=== PATIENT | male | born 1950 | race Hispanic/Latino ===

== ENCOUNTER 2017-10-03 19:38 | Emergency (ER) | payer MEDICARE ==
[2017-10-03 20:29] LABS: BASOPHILS % (AUTO) 0.8 % (0.0-5.0); EOSINOPHILS % (AUTO) 2.1 % (0.0-8.0); HEMATOCRIT 38.9 % (42-54); LYMPHOCYTES % (AUTO) 24.2 % (21.0-51.0); MEAN CORPUSCULAR HEMOGLOBIN 31.6 pg (27.0-33.0); MEAN CORPUSCULAR HGB CONC 34.4 g/dL (32.0-36.0); MEAN CORPUSCULAR VOLUME 91.9 fL (79-99); MONOCYTES % (AUTO) 6.1 % (3.0-13.0); NEUTROPHILS % (AUTO) 66.8 % (40.0-77.0); PLATELET COUNT (AUTO) 221 K/uL (130-400); RED BLOOD CELL COUNT(AUTO) 4.24 MIL/uL (4.50-6.20); RED CELL DISTRIBUTION WIDTH 14.1 % (11.0-15.5)
[2017-10-03 20:39] LABS: BILIRUBIN,URINE Negative (NEGATIVE); COLOR,URINE Yellow (YELLOW); GLUCOSE, URINE (UA) Negative (NEGATIVE); KETONES,URINE Negative (NEGATIVE); LEUKOCYTE ESTERASE ,URINE Negative (NEGATIVE); NITRATE,URINE Negative (NEGATIVE); OCCULT BLOOD,URINE Negative (NEGATIVE); PROTEIN,URINE Negative (NEGATIVE); UROBILINOGEN,URINE 0.2 mg/dL (0.2-1.0)
[2017-10-03 20:42] LABS: APPEARANCE,URINE CLEAR (CLEAR)
[2017-10-03 20:45] LABS: INR 1.03 (0.85-1.15); PARTIAL THROMBOPLASTIN TIME 27.5 SEC (26.3-35.5); PROTHROMBIN TIME 10.8 SEC (9.6-11.6)
[2017-10-03 20:46] LABS: CREATININE 1.2 mg/dL (0.5-1.5); POTASSIUM 3.7 mmol/L (3.5-5.1)
[2017-10-03 20:47] LABS: AMPHET/METH SCREEN,URINE NEGATIVE (NEGATIVE); BARBITURATE SCREEN, URINE NEGATIVE (NEGATIVE); BENZODIAZEPINES SCREEN,URINE NEGATIVE (NEGATIVE); CANNABINOID SCREEN,URINE NEGATIVE (NEGATIVE); COCAINE SCREEN,URINE NEGATIVE (NEGATIVE); OPIATE SCREEN,URINE NEGATIVE (NEGATIVE); PHENCYCLIDINE SCREEN,URINE NEGATIVE (NEGATIVE)
[2017-10-03 21:00] LABS: BILIRUBIN,TOTAL 0.6 mg/dL (0.2-1.0); CREATINE KINASE MB 8.7 ng/mL (0.5-3.6); TOTAL PROTEIN, SERUM 7.3 g/dL (6.0-8.3)
[2017-10-03] MEDS ORDERED: ONDANSETRON HCL 4 MG/2 ML VIAL ONE (21:11)
[2017-10-03] MEDS ORDERED: KETOROLAC TROMETHAMINE 15MG/ML ONE (21:11)
[2017-10-03] MEDS ORDERED: METOCLOPRAMIDE 10 MG TABLET ONE (21:21)
== END 2017-10-03 22:47 | disposition home or self-care (01) ==
LOC: EDH 19:38
DX: G44.209 Tension-type headache, unspecified, not intractable (principal)
CPT/HCPCS: 36415; 70450; 71045; 80053; 80305; 81003; 82550; 82553; 84484; 85025; 85610; 85730; 93005; 96374; 96375; 99285; J1885; J2405

== ENCOUNTER 2018-12-22 09:16 | Observation (INO) | payer MEDICARE ==
[2018-12-22] VITALS (17 sets, daily range): BP systolic 113–194; BP diastolic 64–86
[~2018-12-22] VITALS: Ht 167.6 cm; Wt 74.4 kg
[2018-12-22] MEDS ORDERED: SODIUM CHLORIDE 0.9% 1000ML 1,000 ML IV ONE (11:24)
[2018-12-22] MEDS ORDERED: DONE10TA8 PO (11:34)
[2018-12-22] MEDS ORDERED: SENN-183 PO (11:34)
[2018-12-22] MEDS ORDERED: MEMA5TAB PO (11:34)
[2018-12-22] MEDS ORDERED: ACET-66 PO (11:34)
[2018-12-22] MEDS ORDERED: LACT10SO9 PO (11:34)
[2018-12-22] MEDS ORDERED: FAMO-136 PO (11:34)
[2018-12-22] MEDS ORDERED: DEXT15CA10 PO (11:34)
[2018-12-22] MEDS ORDERED: OLAN10TA3 PO (11:34)
[2018-12-22] MEDS ORDERED: BRIM5DRO OP (11:34)
[2018-12-22] MEDS ORDERED: TRAZ-187 PO (11:34)
[2018-12-22] MEDS ORDERED: LORA2VIA33 IJ (11:34)
[2018-12-22] MEDS ORDERED: MIDAZOLAM HCL 1 MG/ML 2ML VIAL ONE (12:43)
[2018-12-22] MEDS ORDERED: FENTANYL CITRATE PF 50 MCG/1 ML 2ML VIAL ONE (12:45)
[2018-12-22 12:52] LABS: BASOPHILS % (AUTO) 0.9 % (0.0-5.0); HEMATOCRIT 35.5 % (42-54); LYMPHOCYTES % (AUTO) 31.2 % (21.0-51.0); MEAN CORPUSCULAR HEMOGLOBIN 30.9 pg (27.0-33.0); MEAN CORPUSCULAR HGB CONC 33.1 g/dL (32.0-36.0); MEAN CORPUSCULAR VOLUME 93.3 fL (79-99); MONOCYTES % (AUTO) 7.7 % (3.0-13.0); NEUTROPHILS % (AUTO) 59.2 % (40.0-77.0); PLATELET COUNT (AUTO) 151 K/uL (130-400); RED CELL DISTRIBUTION WIDTH 14.1 % (11.0-15.5); WHITE BLOOD COUNT (AUTO) 7.2 K/uL (4.8-10.8)
[2018-12-22] MEDS ORDERED: LEVOFLOXACIN 750 MG/D5W 150 ML 150 ML IV SCH (13:00)
[2018-12-22 13:02] LABS: CREATININE 1.4 mg/dL (0.5-1.5); POTASSIUM 4.2 mmol/L (3.5-5.1)
[2018-12-22 13:06] LABS: ALBUMIN 3.6 g/dL (3.5-5.0); BILIRUBIN,TOTAL 0.9 mg/dL (0.2-1.0); TOTAL PROTEIN, SERUM 7.5 g/dL (6.0-8.3)
[2018-12-22] MEDS ORDERED: METHYLPREDNISOLONE SOD SUCC 40MG/ML 1ML ONE (13:08)
[2018-12-22] MEDS ORDERED: METOCLOPRAMIDE 10 MG/2 ML VIAL ONE (13:08)
--- NOTE | 2018-12-22 17:03 | NUR ---
NURSING NOTE Patient received in room after procedure with orders to be NPO and admit under Dr. Clarke. He refused NPO status and signed refusal. He wanted to leave and Dr. Larson was notified. She stated she wanted patient to stay overnight, then reevaluate in AM and feed if appropriate. Patient refused this plan again. Dr. Clarke came to see patient. He decided to sign Against Medical Advice and leave. Both Drs. Clarke and Marsha aware. Dr. Larson was notified through Sofi at her office. Patient at time of discharge was alert and oriented X 3. Verbalized and demonstrated understanding of the risks of aspiration that were explained to him by primary nurse. Left accompanied by Supervisor [employer] E[employer] at [facility] and by IMPORT EXPORT AGENT at [facility], who were accompanying him as well when he arrived to floor.
[2018-12-23] MEDS ORDERED: PANTOPRAZOLE 40 MG/VIAL IVP SCH (09:00)
[2018-12-24] MEDS ORDERED: LEVOFLOXACIN 750 MG TABLET PO SCH (09:00)
== END 2018-12-22 17:10 | disposition left against medical advice (07) ==
LOC: DAH 09:16 → DAHIP 09:17 → DAH 09:17 → 3BH 14:13
PROVIDERS: ADMIT Internal Medicine; ATTEND Internal Medicine
DX: K29.70 Gastritis, unspecified, without bleeding (principal); K31.89 Other diseases of stomach and duodenum; K22.8 Other specified diseases of esophagus; K44.9 Diaphragmatic hernia without obstruction or gangrene; K62.5 Hemorrhage of anus and rectum; D12.5 Benign neoplasm of sigmoid colon; D12.3 Benign neoplasm of transverse colon; D12.2 Benign neoplasm of ascending colon; K57.30 Diverticulosis of large intestine without perforation or abscess without bleeding; K59.00 Constipation, unspecified; F20.81 Schizophreniform disorder; Z79.899 Other long term (current) drug therapy; Z80.0 Family history of malignant neoplasm of digestive organs
CPT/HCPCS: 36415; 43239; 45378; 71045; 80053; 85025; 88305; 88342; 96360; 96361; G0378 ×8; J1956; J2250; J2765; J2920; J3010; J7030; G9654

== ENCOUNTER → 2019-03-01 | Outpatient (CLI) | payer MEDICARE ==
[~2019-03-01] MED LIST: ACET-66 PO; BRIM5DRO OP; DEXT15CA10 PO; DONE10TA8 PO; FAMO-136 PO; LACT10SO9 PO; LORA2VIA33 IJ; MEMA5TAB PO; OLAN10TA3 PO; SENN-183 PO; TRAZ-187 PO
== END | disposition home or self-care (01) ==
LOC: RAH 12:38
PROVIDERS: ATTEND Internal Medicine
DX: G31.89 Other specified degenerative diseases of nervous system (principal)
CPT/HCPCS: 70450

== ENCOUNTER 2019-03-09 05:49 | Day surgery (SDC) | payer MEDICARE ==
[~2019-03-09] VITALS: Ht 162.6 cm; Wt 72.6 kg
[~2019-03-09 05:49] MED LIST changes: -DEXT15CA10 PO; -DONE10TA8 PO; +DONE23TA PO; +ESZO3 PO; -FAMO-136 PO; +MEMA10TA11 PO; -MEMA5TAB PO; -OLAN10TA3 PO; +OLAN15TA2 PO; +OMEP-50 PO; +SERT100T PO; +SUCR1TAB2 PO
[2019-03-09] MEDS ORDERED: SODIUM CHLORIDE 0.9% 1000ML 1,000 ML IV ONE (06:07)
[2019-03-09 07:21] VITALS: BP 125/73
[2019-03-09] MEDS ORDERED: PROPOFOL 10 MG/ML 20ML VIAL IV ONE (07:56)
[2019-03-09 08:14] VITALS: BP 97/43
[2019-03-09 08:19] VITALS: BP 127/59
[2019-03-09 08:24] VITALS: BP 138/68
[2019-03-09 08:29] VITALS: BP 138/69
== END 2019-03-09 08:45 ==
LOC: ENDO 05:49
PROVIDERS: ATTEND Internal Medicine
DX: K63.5 Polyp of colon (principal); K62.1 Rectal polyp; K57.30 Diverticulosis of large intestine without perforation or abscess without bleeding; K22.70 Barrett's esophagus without dysplasia; F20.9 Schizophrenia, unspecified; K46.9 Unspecified abdominal hernia without obstruction or gangrene; K64.9 Unspecified hemorrhoids; K85.90 Acute pancreatitis without necrosis or infection, unspecified; K29.30 Chronic superficial gastritis without bleeding; K59.00 Constipation, unspecified; F20.81 Schizophreniform disorder; K44.9 Diaphragmatic hernia without obstruction or gangrene; F17.210 Nicotine dependence, cigarettes, uncomplicated; Z79.899 Other long term (current) drug therapy; Z90.49 Acquired absence of other specified parts of digestive tract; Z80.0 Family history of malignant neoplasm of digestive organs
CPT/HCPCS: 45380; 88305; A4606; J2704; J7030

== ENCOUNTER 2019-10-22 06:27 | Emergency (ER) | payer MEDICARE ==
[~2019-10-22 06:27] MED LIST changes: -OMEP-50 PO; +OMEP20CA12 PO
[2019-10-22 06:48] LABS: BASOPHILS % (AUTO) 0.4 % (0.0-5.0); EOSINOPHILS % (AUTO) 0.1 % (0.0-8.0); HEMATOCRIT 32.4 % (42-54); LYMPHOCYTES % (AUTO) 12.9 % (21.0-51.0); MEAN CORPUSCULAR HEMOGLOBIN 24.5 pg (27.0-33.0); MEAN CORPUSCULAR HGB CONC 29.6 g/dL (32.0-36.0); MEAN CORPUSCULAR VOLUME 82.7 fL (79-99); MONOCYTES % (AUTO) 5.3 % (3.0-13.0); NEUTROPHILS % (AUTO) 81.2 % (40.0-77.0); PLATELET COUNT (AUTO) 336 K/uL (130-400); RED BLOOD CELL COUNT(AUTO) 3.92 MIL/uL (4.50-6.20); WHITE BLOOD COUNT (AUTO) 7.9 K/uL (4.8-10.8)
[2019-10-22 07:04] LABS: INR 1.12 (0.85-1.15); PARTIAL THROMBOPLASTIN TIME 25.3 SEC (26.3-35.5); PROTHROMBIN TIME 11.7 SEC (9.6-11.6)
[2019-10-22 07:12] LABS: ALBUMIN 3.7 g/dL (3.5-5.0); BILIRUBIN,DIRECT 0.1 mg/dL (0.0-0.3); BILIRUBIN,TOTAL 0.5 mg/dL (0.2-1.0); CREATININE 1.4 mg/dL (0.5-1.5); TOTAL PROTEIN, SERUM 8.7 g/dL (6.0-8.3)
[2019-10-22] MEDS ORDERED: ONDANSETRON HCL 4 MG/2 ML VIAL ONE (08:06)
[2019-10-22] MEDS ORDERED: POTASSIUM BICARB/CIT AC 25 MEQ TABLET.EFF ONE (08:06)
[2019-10-22] MEDS ORDERED: SODIUM CHLORIDE 0.9% 1000ML 1,000 ML IV ONE (08:07)
== END 2019-10-22 10:03 | disposition left against medical advice (07) ==
LOC: EDH 06:27
DX: K29.00 Acute gastritis without bleeding (principal); E87.6 Hypokalemia
CPT/HCPCS: 36415; 74176; 80048; 80076; 82550; 83690; 83880; 84484; 85025; 85610; 85730; 93005; 96365; 96375; 99285; J2405; J7030; 96374

== ENCOUNTER 2019-11-12 05:16 | Observation (INO) | payer MEDICARE ==
[~2019-11-12] VITALS: Ht 162.6 cm; Wt 73.2 kg
[2019-11-12 06:06] LABS: BASOPHILS % (AUTO) 0.5 % (0.0-5.0); HEMATOCRIT 25.5 % (42-54); LYMPHOCYTES % (AUTO) 20.5 % (21.0-51.0); MEAN CORPUSCULAR HEMOGLOBIN 23.1 pg (27.0-33.0); MEAN CORPUSCULAR VOLUME 79.7 fL (79-99); MONOCYTES % (AUTO) 9.2 % (3.0-13.0); NEUTROPHILS % (AUTO) 68.6 % (40.0-77.0); PLATELET COUNT (AUTO) 237 K/uL (130-400); RED CELL DISTRIBUTION WIDTH 16.5 % (11.0-15.5); WHITE BLOOD COUNT (AUTO) 4.2 K/uL (4.8-10.8)
[2019-11-12 06:23] LABS: CREATININE 1.3 mg/dL (0.5-1.5); POTASSIUM 3.7 mmol/L (3.5-5.1)
[2019-11-12] MEDS ORDERED: ONDANSETRON HCL 4 MG/2 ML VIAL ONE (06:27)
[2019-11-12 06:28] LABS: ALBUMIN 2.9 g/dL (3.5-5.0); BILIRUBIN,TOTAL 0.3 mg/dL (0.2-1.0); TOTAL PROTEIN, SERUM 7.1 g/dL (6.0-8.3)
[2019-11-12] MEDS ORDERED: SODIUM CHLORIDE 0.9% 1000ML 1,000 ML IV ONE (06:28)
[2019-11-12 07:37] LABS: APPEARANCE,URINE CLEAR (CLEAR); BILIRUBIN,URINE NEGATIVE (NEGATIVE); COLOR,URINE YELLOW (YELLOW); GLUCOSE, URINE (UA) NEGATIVE (NEGATIVE); KETONES,URINE NEGATIVE (NEGATIVE); LEUKOCYTE ESTERASE ,URINE NEGATIVE (NEGATIVE); NITRATE,URINE NEGATIVE (NEGATIVE); OCCULT BLOOD,URINE NEGATIVE (NEGATIVE); PROTEIN,URINE NEGATIVE (NEGATIVE); UROBILINOGEN,URINE 0.2 mg/dL (0.2-1.0)
[2019-11-12] MEDS ORDERED: MAG HYDROX/AL HYDROX/SIMETH ES 30 ML SUSP UDCUP ONE (07:58)
[2019-11-12] MEDS ORDERED: LIDOCAINE HCL 2% VISCOUS 15 ML UDCUP ONE (07:58)
[2019-11-12] MEDS ORDERED: FAMOTIDINE/PF 20 MG/2 ML VIAL IV ONE (08:00)
[2019-11-12 08:35] LABS: RETICULOCYTE % (AUTO) 1.23 % (0.42-2.23)
[2019-11-12] MEDS ORDERED: ACETAMINOPHEN 325 MG TAB PO PRN ×2 (08:45)
[2019-11-12] MEDS ORDERED: HYDRALAZINE HCL 20 MG/ML VIAL IV PRN (08:45)
[2019-11-12] MEDS ORDERED: ONDANSETRON HCL 4 MG/2 ML VIAL IV PRN (08:45)
[2019-11-12] MEDS: PANTOPRAZOLE SODIUM 80 MG in SODIUM CHLORIDE 0.9% 100 ML IV SCH (09:00)
[2019-11-12] MEDS ORDERED: SODIUM CHLORIDE 0.9% 100 ML IV ONE (09:40)
[2019-11-12 10:14] LABS: AMPHET/METH SCREEN,URINE NEGATIVE (NEGATIVE); BARBITURATE SCREEN, URINE NEGATIVE (NEGATIVE); BENZODIAZEPINES SCREEN,URINE NEGATIVE (NEGATIVE); CANNABINOID SCREEN,URINE NEGATIVE (NEGATIVE); OPIATE SCREEN,URINE NEGATIVE (NEGATIVE); PHENCYCLIDINE SCREEN,URINE NEGATIVE (NEGATIVE)
[2019-11-12 10:41] LABS: COCAINE SCREEN,URINE NEGATIVE (NEGATIVE)
[2019-11-12 10:43] LABS: HEMOGLOBIN A1C 5.7 % (4.0-6.0)
[2019-11-12 10:55] LABS: % IRON SATURATION 3.4 % (30-44)
[2019-11-12] MEDS: TRAMADOL HCL 50 MG TABLET PO PRN (12:00)
--- NOTE | 2019-11-12 12:20 | NUR ---
SPOKE TO DR MEDINA ORDERS GIVEN TO OBTAIN CONSENT FOR EGD WITH ANESTHESIA AND COLONOSCOPY TOMORROW A.M. 11/13/19. ORDERS FOR CLEAR LIQUID DIET AND GOLYTELY GIVEN BY .
[2019-11-12] MEDS ORDERED: PEG 3350/NA SULF,BICARB,CL/KCL 4000 ML SOLN PO SCH (13:00)
[2019-11-12 16:00] VITALS: BP 123/56
[2019-11-12] MEDS: CEFTRIAXONE SODIUM 1 GM IVP SCH ×2 (16:59→22:19)
[2019-11-12] MEDS: AZITHROMYCIN 500MG+NS 250ML 250 ML IV SCH (16:59)
[2019-11-12] MEDS: SODIUM CHLORIDE 0.9% 1000ML 1,000 ML IV SCH (17:03)
--- NOTE | 2019-11-12 19:01 | NUR ---
ambulatory Addendum: 11/12/19 at 1902 by BERT WOOD RN RN Amended: Links added.
[2019-11-12 19:30] VITALS: BP 132/76
--- NOTE | 2019-11-12 19:45 | NUR ---
PM assessment Received pt alone with NS at 125cc/hr, Protonix drip at 8mg/hr infusing well. Routine assessment done, plan of care discuss made aware & confirmed awareness of plan EGD & Colonoscopy in AM, reminded to be NPO by MN. Meanwhile encourage to continue drinking his Golytely which is noted still almost full. Pt provided with a BSC at this time & instructed to call for assistance when getting out of bed to prevent accidental fall or pulling of his IV access. Pt's Lactulose will be held for now as pt on Golytely.
[2019-11-12] MEDS: LACTULOSE 20 GM/30 ML UDCUP PO SCH (21:00)
[2019-11-13] VITALS (33 sets, daily range): BP systolic 98–136; BP diastolic 13–104
[2019-11-13] MEDS: PANTOPRAZOLE SODIUM 80 MG in SODIUM CHLORIDE 0.9% 100 ML IV SCH (01:21)
[2019-11-13] MEDS: SODIUM CHLORIDE 0.9% 1000ML 1,000 ML IV SCH ×3 (01:24→21:15)
[2019-11-13] MEDS: TRAMADOL HCL 50 MG TABLET PO PRN (02:14)
[2019-11-13 05:09] LABS: BASOPHILS % (AUTO) 0.8 % (0.0-5.0); EOSINOPHILS % (AUTO) 2.2 % (0.0-8.0); HEMATOCRIT 28.3 % (42-54); LYMPHOCYTES % (AUTO) 38.9 % (21.0-51.0); MEAN CORPUSCULAR HEMOGLOBIN 23.3 pg (27.0-33.0); MEAN CORPUSCULAR HGB CONC 29.3 g/dL (32.0-36.0); MEAN CORPUSCULAR VOLUME 79.5 fL (79-99); MONOCYTES % (AUTO) 9.3 % (3.0-13.0); NEUTROPHILS % (AUTO) 48.5 % (40.0-77.0); PLATELET COUNT (AUTO) 295 K/uL (130-400); RED BLOOD CELL COUNT(AUTO) 3.56 MIL/uL (4.50-6.20); RED CELL DISTRIBUTION WIDTH 16.3 % (11.0-15.5); WHITE BLOOD COUNT (AUTO) 6.3 K/uL (4.8-10.8)
--- NOTE | 2019-11-13 05:19 | NUR ---
Re: Colonoscopy prep Pt last BM noted clear yellow liquid, pt consumed the whole Golytely prep last night.
[2019-11-13 05:27] LABS: ALBUMIN 3.2 g/dL (3.5-5.0); BILIRUBIN,TOTAL 0.3 mg/dL (0.2-1.0); CREATININE 1.3 mg/dL (0.5-1.5); POTASSIUM 3.8 mmol/L (3.5-5.1); TOTAL PROTEIN, SERUM 7.7 g/dL (6.0-8.3)
--- NOTE | 2019-11-13 06:40 | NUR ---
Re: EGD, Colonoscopy Pt taken down per bed with Endoscopy staff, Protonix drip stop at this time, NS continued as per GI staff aware last BM was clear yellow liquid.
[2019-11-13] MEDS ORDERED: PROPOFOL 10 MG/ML 20ML VIAL IV ONE (07:26)
[2019-11-13] MEDS: LACTULOSE 20 GM/30 ML UDCUP PO SCH ×2 (09:00→21:12)
[2019-11-13] MEDS: AZITHROMYCIN 500MG+NS 250ML 250 ML IV SCH (13:47)
[2019-11-13] MEDS: CEFTRIAXONE SODIUM 1 GM IVP SCH ×2 (13:47→23:08)
[2019-11-13] MEDS ORDERED: SUCRALFATE 1 GM/10 ML PO SCH (19:45)
[2019-11-13] MEDS ORDERED: PANTOPRAZOLE 40 MG/VIAL IVP SCH (21:00)
[2019-11-13] MEDS: SUCRALFATE 1 GM TABLET PO SCH (21:12)
[2019-11-14] VITALS: BP 107/59
[2019-11-14] MEDS: SUCRALFATE 1 GM TABLET PO SCH ×2 (03:33→09:20)
[2019-11-14 04:00] VITALS: BP 128/74
[2019-11-14] MEDS: TRAMADOL HCL 50 MG TABLET PO PRN (05:02)
[2019-11-14 05:17] LABS: BASOPHILS % (AUTO) 0.8 % (0.0-5.0); EOSINOPHILS % (AUTO) 2.3 % (0.0-8.0); HEMATOCRIT 25.5 % (42-54); LYMPHOCYTES % (AUTO) 31.8 % (21.0-51.0); MEAN CORPUSCULAR HEMOGLOBIN 22.9 pg (27.0-33.0); MEAN CORPUSCULAR HGB CONC 28.6 g/dL (32.0-36.0); MEAN CORPUSCULAR VOLUME 79.9 fL (79-99); NEUTROPHILS % (AUTO) 55.7 % (40.0-77.0); PLATELET COUNT (AUTO) 242 K/uL (130-400); RED BLOOD CELL COUNT(AUTO) 3.19 MIL/uL (4.50-6.20); RED CELL DISTRIBUTION WIDTH 16.2 % (11.0-15.5); WHITE BLOOD COUNT (AUTO) 4.9 K/uL (4.8-10.8)
[2019-11-14 05:52] LABS: ALBUMIN 2.7 g/dL (3.5-5.0); BILIRUBIN,TOTAL 0.3 mg/dL (0.2-1.0); CREATININE 1.2 mg/dL (0.5-1.5); POTASSIUM 3.7 mmol/L (3.5-5.1); TOTAL PROTEIN, SERUM 6.7 g/dL (6.0-8.3)
[2019-11-14 08:00] VITALS: BP 116/70
[2019-11-14] MEDS ORDERED: ACETAMINOPHEN-CODEINE 300/30MG TAB PO SCH (08:00)
[2019-11-14] MEDS: SODIUM CHLORIDE 0.9% 1000ML 1,000 ML IV SCH (08:31)
[2019-11-14] MEDS ORDERED: PANTOPRAZOLE SODIUM 40 MG TABLET.DR PO SCH (09:14)
[2019-11-14] MEDS: LACTULOSE 20 GM/30 ML UDCUP PO SCH (09:22)
[2019-11-14 11:20] VITALS: BP 112/66
--- NOTE | 2019-11-14 12:12 | NUR ---
Discharge instructions provided in [place], medications reviewed and notified of scheduled follow up appointments with Dr. Sabillon and Dr. Apple. Patient stated he removed IV to RFA. Assessed site, free of redness, swelling, irritation or induration. Explained to patient dangers of removing IV without correct training and knowledge and instructed him to seek medical care if swelling or pain occur to PIV site as might indicate clot or thrombus. Patient verbalized understanding. Prescriptions given to patient, assisted downstairs to ER entrance by Bandar Olivares CNA, where nephew is waiting for him.
--- NOTE | 2019-11-14 14:24 | NUR ---
CHART REVIEWED. NO TRIGGERS TO CASE MANAGEMENT. OBS PATIENT WITH DISCHARGE PLANNED. DETAILED CM ASSESSMENT DEFERRED Addendum: 11/14/19 at 1427 by LILO CORRAL RN CM Amended: Links added.
== END 2019-11-14 12:15 | disposition home or self-care (01) ==
LOC: EDH 05:16 → EDHIP 08:31 → 4CH 10:12
PROVIDERS: ADMIT Internal Medicine; ATTEND Internal Medicine
DX: R10.10 Upper abdominal pain, unspecified (principal); D64.9 Anemia, unspecified; K29.70 Gastritis, unspecified, without bleeding; G30.9 Alzheimer's disease, unspecified; F02.80 Dementia in other diseases classified elsewhere, unspecified severity, without behavioral disturbance, psychotic disturbance, mood disturbance, and anxiety; Z72.0 Tobacco use
CPT/HCPCS: 36415 ×3; 43239; 45378; 71045; 74176; 80053 ×3; 80305; 81003; 82140; 82270; 82550; 82607; 82728; 83036; 83690; 84484; 85025 ×3; 86850; 86900; 86901; 87486; 87581; 87633; 87798; 88305; 93005; 96365; 96366; 96367; 96368; 96375 ×2; 96376 ×2; 99285; A4620; C9113 ×4; G0378 ×17; G0480; J0456 ×2; J0696 ×4; J2405; J2704; J3490; J7030 ×3

== ENCOUNTER 2019-11-15 21:32 | Emergency (ER) | payer MEDICARE ==
[2019-11-15] MEDS ORDERED: LIDOCAINE HCL 2% VISCOUS 15 ML UDCUP ONE (23:32)
[2019-11-15] MEDS ORDERED: MAGNESIUM HYDROXIDE 30 ML/UDCUP ONE (23:33)
[2019-11-15 23:37] LABS: BASOPHILS % (AUTO) 0.6 % (0.0-5.0); HEMATOCRIT 27.9 % (42-54); LYMPHOCYTES % (AUTO) 33.3 % (21.0-51.0); MEAN CORPUSCULAR HEMOGLOBIN 23.2 pg (27.0-33.0); MEAN CORPUSCULAR HGB CONC 29.4 g/dL (32.0-36.0); MONOCYTES % (AUTO) 7.9 % (3.0-13.0); NEUTROPHILS % (AUTO) 55.9 % (40.0-77.0); PLATELET COUNT (AUTO) 237 K/uL (130-400); RED BLOOD CELL COUNT(AUTO) 3.53 MIL/uL (4.50-6.20); RED CELL DISTRIBUTION WIDTH 16.5 % (11.0-15.5); WHITE BLOOD COUNT (AUTO) 6.5 K/uL (4.8-10.8)
[2019-11-15 23:48] LABS: CREATININE 1.3 mg/dL (0.5-1.5); POTASSIUM 4.1 mmol/L (3.5-5.1)
[2019-11-15 23:50] LABS: INR 1.05 (0.85-1.15); PROTHROMBIN TIME 11.3 SEC (9.6-11.6)
[2019-11-15 23:52] LABS: ALBUMIN 3.3 g/dL (3.5-5.0); BILIRUBIN,TOTAL 0.3 mg/dL (0.2-1.0)
[2019-11-15 23:57] LABS: APPEARANCE,URINE Clear (CLEAR); BILIRUBIN,URINE Negative (NEGATIVE); COLOR,URINE Yellow (YELLOW); GLUCOSE, URINE (UA) Negative (NEGATIVE); KETONES,URINE Negative (NEGATIVE); LEUKOCYTE ESTERASE ,URINE Negative (NEGATIVE); NITRATE,URINE Negative (NEGATIVE); OCCULT BLOOD,URINE Negative (NEGATIVE); PH,URINE 5.5 (5.0-8.0); PROTEIN,URINE Negative (NEGATIVE); UROBILINOGEN,URINE 0.2 mg/dL (0.2-1.0)
== END 2019-11-16 00:57 | disposition home or self-care (01) ==
LOC: EDH 21:32
DX: K29.00 Acute gastritis without bleeding (principal); M54.5 Low back pain; R05 Cough; Z72.0 Tobacco use
CPT/HCPCS: 36415; 71046; 80053; 81003; 82550; 83690; 84484; 85025; 85610; 85730; 87804; 93005

== ENCOUNTER 2020-03-28 15:01 | Emergency (ER) | payer MEDICARE | END 2020-03-28 16:22 | disposition home or self-care (01) | LOC: EDH 15:01 | DX: R21 Rash and other nonspecific skin eruption (principal); L29.0 Pruritus ani; F20.9 Schizophrenia, unspecified; Z72.0 Tobacco use ==

== ENCOUNTER 2021-07-06 08:46 | Emergency (ER) | payer MEDICARE ==
[~2021-07-06] VITALS: Ht 167.6 cm; Wt 74.8 kg
[2021-07-06 09:02] VITALS: BP 140/82
== END 2021-07-06 09:41 | disposition home or self-care (01) ==
LOC: EDH 08:46
DX: K43.9 Ventral hernia without obstruction or gangrene (principal); F20.9 Schizophrenia, unspecified